=== PATIENT | female | born 1980 | race Caucasian/White ===

== ENCOUNTER 2016-12-14 21:46 | Emergency (ER) | payer MEDICAID ==
[~2016-12-14] VITALS: Ht 154.9 cm; Wt 78.0 kg
[2016-12-14 21:48] VITALS: BP 135/89
--- NOTE | 2016-12-14 21:59 | NUR ---
PATIENT AMBULATED TO ER OF2.
--- NOTE | 2016-12-14 22:01 | NUR ---
PATIENT BEING EVALUATED BY DR. UNGER.
[2016-12-14] MEDS ORDERED: predniSONE 20 MG TAB PO ONE (22:05)
[2016-12-14] MEDS ORDERED: diphenhydrAMINE 50 MG CAP PO ONE (22:05)
[2016-12-14 23:36] VITALS: BP 132/84
--- NOTE | 2016-12-14 23:36 | NUR ---
Patient discharged with v/s stable. Written and verbal after care instructions given and explained. Patient alert, oriented and verbalized understanding of instructions. Ambulatory with steady gait. All questions addressed prior to discharge. ID band removed. Patient advised to follow up with PMD. Rx of PREDNISONE 50MG given. Patient educated on indication of medication including possible reaction and side effects. Opportunity to ask questions provided and answered.
== END 2016-12-14 23:36 | disposition home or self-care (01) ==
LOC: MED 21:46
DX: T78.1XXA Other adverse food reactions, not elsewhere classified, initial encounter (principal); R22.0 Localized swelling, mass and lump, head; L29.9 Pruritus, unspecified; R06.00 Dyspnea, unspecified; X58.XXXA Exposure to other specified factors, initial encounter
CPT/HCPCS: 99283; J7512; Q0163

== ENCOUNTER 2018-09-16 19:23 | Emergency (ER) | payer MEDICAID ==
[~2018-09-16] VITALS: Ht 160 cm; Wt 83.9 kg
[2018-09-16 19:40] VITALS: BP 129/77
--- NOTE | 2018-09-16 19:43 | NUR ---
TO LOBBY A/W BED, RITA BARNES NOTED
--- NOTE | 2018-09-16 21:15 | NUR ---
PT AMBULATED TO BED 02.
--- NOTE | 2018-09-16 21:23 | NUR ---
37/F PRESENTS TO ED, C/O 1CM LACERATION ON L HAND, IN BETWEEN L 1ST AND 2ND DIGIT, X3 HRS, CUT WHILE WASHING A CERAMIC MUG. BLEEDING CONTROLLED, +CMS. AOX4, GCS 15, RR EVEN AND UNLABORED. HX DM, RX METFORMIN
[2018-09-16 22:35] VITALS: BP 129/77
--- NOTE | 2018-09-16 22:35 | NUR ---
Patient discharged with v/s stable. Written and verbal after care instructions given and explained. Patient verbalized understanding. Ambulatory with steady gait. All questions addressed prior to discharge. Advised to follow up with PMD.
== END 2018-09-16 22:35 | disposition home or self-care (01) ==
LOC: MED 19:23
DX: S61.412A Laceration without foreign body of left hand, initial encounter (principal); E11.9 Type 2 diabetes mellitus without complications; W26.8XXA Contact with other sharp object(s), not elsewhere classified, initial encounter; Y93.G1 Activity, food preparation and clean up; Y92.89 Other specified places as the place of occurrence of the external cause; Y99.8 Other external cause status
CPT/HCPCS: 12001; 99283